=== PATIENT | male | born 1990 | race Caucasian/White ===

== ENCOUNTER 2023-10-03 15:33 | Emergency (ER) | payer SELFPAY ==
[~2023-10-03] VITALS: Ht 177.8 cm; Wt 70.3 kg
[2023-10-03 15:40] VITALS: TEMP 98.3; O2SAT 100
[2023-10-03] MEDS: DIAZEPAM 5 MG TABLET PO ONE (16:07)
[2023-10-03 18:29] VITALS: BP 141/85; PULSE 60; RESP 16
== END 2023-10-03 18:30 | disposition home or self-care (01) ==
LOC: ER 15:33
DX: T78.40XA Allergy, unspecified, initial encounter (principal); X58.XXXA Exposure to other specified factors, initial encounter
CPT/HCPCS: 71045; 93005; 99283